=== PATIENT | female | born 1995 | race American Indian/Alaskan Native ===

== ENCOUNTER 2017-11-01 11:11 | Emergency (ER) | payer MEDICAID ==
[2017-11-01 11:24] VITALS: RESP 18; BMI 21.6
--- NOTE | 2017-11-01 12:12 | ED PDOC ---
Arrival/HPI - General Historian: Patient - History of Present Illness Time/Duration: < week Symptom Course: Improving Activities at Onset: Light Context: Home <Minh Cole - Last Filed: 11/01/17 12:27> <Sravan Hernandez DO - Last Filed: 11/01/17 22:32> - General Time Seen by Provider: 11/01/17 11:14 - History of Present Illness Narrative History of Present Illness (Text): 11/01/17 12:06 This is a 22 year old female with PMH of asthma presenting to the ED for two day history of pruitic rash that appeared on her right shoulder and upper chest. Rash is much improved today. She states she gets similar symptoms when getting into contact with maple, grass, latex and dust. Benadryl helps with the symptoms. LMP is today. She denies CP, SOB, abdominal pain, headaches, back pain , urinary complaints, numbness or tingling, trauma, recent sickness, fevers, nausea, vomiting, and blood in the stool or urine. (Minh Cole) Past Medical History - Provider Review Nursing Documentation Reviewed: Yes - Cardiac Hx Cardiac Disorders: No - Pulmonary Hx Respiratory Disorders: Yes Hx Asthma: Yes - Neurological Hx Neurological Disorder: No - HEENT Hx HEENT Disorder: No - Renal Hx Renal Disorder: No - Endocrine/Metabolic Hx Endocrine Disorders: No - Hematological/Oncological Hx Blood Disorders: No - Integumentary Hx Dermatological Disorder: No - Musculoskeletal/Rheumatological Hx Musculoskeletal Disorders: No - Gastrointestinal Hx Gastrointestinal Disorders: No - Genitourinary/Gynecological Hx Genitourinary Disorders: No - Psychiatric Hx Psychophysiologic Disorder: Yes Hx Depression: Yes Hx Substance Use: No - Anesthesia Hx Anesthesia: Yes <Minh Cole - Last Filed: 11/01/17 12:27> Family/Social History - Physician Review Nursing Documentation Reviewed: Yes Family/Social History: Unknown Family HX Smoking Status: Never Smoked Hx Alcohol Use: No Hx Substance Use: No <Minh Cole - Last Filed: 11/01/17 12:27> Allergies/Home Meds <Minh Cole - Last Filed: 11/01/17 12:27> <Sravan Hernandez DO - Last Filed: 11/01/17 22:32> Allergies/Adverse Reactions: Allergies grass pollen Allergy (Verified 07/25/18 11:31) ITCHING house dust mite Allergy (Verified 11/01/17 11:31) ITCHING latex Allergy (Verified 11/01/17 11:31) ITCHING Review of Systems - Physician Review All systems were reviewed & negative as marked: Yes - Review of Systems Constitutional: Normal. absent: Fevers Eyes: Normal. absent: Vision Changes ENT: Normal. absent: Hearing Changes Respiratory: Normal. absent: SOB, Cough Cardiovascular: Normal. absent: Chest Pain, Palpitations Gastrointestinal: Normal. absent: Abdominal Pain, Constipation, Diarrhea, Nausea, Vomiting, Hematochezia, Hematemesis Genitourinary Female: Normal. absent: Dysuria, Frequency Musculoskeletal: Normal Skin: Rash, Pruritis, Other (improving pruitic rash on the right shoulder and upper chest) Neurological: Normal. absent: Headache Endocrine: Normal. absent: Diaphoresis <BaseMinh julian - Last Filed: 11/01/17 12:27> Physical Exam Vital Signs Reviewed: Yes Temperature: Afebrile Blood Pressure: Normal Pulse: Regular Respiratory Rate: Normal Appearance: Positive for: Well-Appearing, Non-Toxic, Comfortable Pain Distress: None Mental Status: Positive for: Alert and Oriented X 3 - Systems Exam Head: Present: Atraumatic, Normocephalic Pupils: Present: PERRL Extroacular Muscles: Present: EOMI Conjunctiva: Present: Normal Mouth: Present: Moist Mucous Membranes Neck: Present: Normal Range of Motion Respiratory/Chest: Present: Clear to Auscultation, Good Air Exchange. No: Respiratory Distress, Accessory Muscle Use, Wheezes Cardiovascular: Present: Regular Rate and Rhythm, Normal S1, S2. No: Murmurs Abdomen: Present: Normal Bowel Sounds. No: Tenderness, Distention, Peritoneal Signs, Rebound, Guarding Back: Present: Normal Inspection Upper Extremity: Present: Normal Inspection. No: Cyanosis, Edema Lower Extremity: Present: Normal Inspection. No: Edema Neurological: Present: Speech Normal, Motor Func Grossly Intact, Normal Sensory Function Skin: Present: Warm, Dry, Normal Color, Other (minimal papules noted on the right shoulder and upper chest. no tenderness or pruitis) Psychiatric: Present: Alert, Oriented x 3, Normal Insight, Normal Concentration <BaseMinh julian - Last Filed: 11/01/17 12:27> Vital Signs Temp Pulse Resp BP Pulse Ox 11/01/17 12:25 97.8 F 85 18 115/70 100 11/01/17 11:12 97.7 F 84 18 118/73 99 Medical Decision Making <Minh Cole - Last Filed: 11/01/17 12:27> <Sravan Hernandez DO - Last Filed: 11/01/17 22:32> ED Course and Treatment: 11/01/17 12:17 Impression: This is a 22 year old female with PMH of asthma presenting to the ED for two day history of pruitic rash that appeared on her right shoulder and upper chest. Differential not limited to: atopic rash vs eczema vs allergic dermatitis Plan: -hydrocortisone cream Progress: Patient resting comfortably, vitals are stable and afebrile. (Minh Cole) 11/01/17 13:24 22 year old female presents to the Emergency Department for evaluation of rash. In agreement with resident note, which includes further HPI details. Patient was seen and evaluated with resident, came up with plan and treatment together. (Sravan Hernandez DO) - PA / ANIMAL LABORATORY TECHNICIAN / Resident Statement MARIA D has reviewed & agrees with the documentation as recorded. / has examined the patient and agrees with the treatment plan. <Minh Cole - Last Filed: 11/01/17 12:27> - PA / ANIMAL LABORATORY TECHNICIAN / Resident Statement MARIA D has reviewed & agrees with the documentation as recorded. MARIA D has examined the patient and agrees with the treatment plan. - Scribe Statement The provider has reviewed the documentation as recorded by the Scribe <Sravan Hernandez DO - Last Filed: 11/01/17 22:32> - Scribe Statement Chelo Kingston, training with Monique Andujar. All medical record entries made by the Scribe were at my direction and personally dictated by me. I have reviewed the chart and agree that the record accurately reflects my personal performance of the history, physical exam, medical decision making, and the department course for this patient. I have also personally directed, reviewed, and agree with the discharge instructions and disposition. (Sravan Hernandez DO) Disposition/Present on Arrival - Present on Arrival History of DVT/PE: No History of Uncontrolled Diabetes: No Urinary Catheter: No History of Decub. Ulcer: No History Surgical Site Infection Following: None <Minh Cole - Last Filed: 11/01/17 12:27> - Present on Arrival Any Indicators Present on Arrival: No - Disposition Have Diagnosis and Disposition been Completed?: Yes Disposition Time: 11:40 <Sravan Hernandez DO - Last Filed: 11/01/17 22:32> - Disposition Diagnosis: Rash Disposition: HOME/ ROUTINE Condition: GOOD Discharge Instructions (ExitCare): Skin Rash (DC) Additional Instructions: KACEY AZUL, thank you for letting us take care of you today. The emergency medical care you received today was directed at your acute symptoms. If you were prescribed any medication, please fill it and take as directed. It may take several days for your symptoms to resolve. Return to the Emergency Department if your symptoms worsen, do not improve, or if you have any other problems. Please contact your doctor or call one of the physicians/clinics you have been referred to that are listed on the Patient Visit Information form that is included in your discharge packet. Bring any paperwork you were given at discharge with you along with any medications you are taking to your follow up visit. Our treatment cannot replace ongoing medical care by a primary care provider outside of the emergency department. Thank you for allowing the [facility] team to be part of your care today. Follow up with your primary care doctor in 3-4 days for re-evaluation and further management. Prescriptions: Hydrocortisone 1% Cream [Cortizone 1% Cream] 1 unit TP BID PRN #1 tube PRN Reason: Rash Referrals: [facility], [Non-Staff] - Follow up with primary Forms: [employer] (Faroese), WORK NOTE
[2017-11-01 12:26] VITALS: BP 115/70; PULSE 85; TEMP 97.8; O2SAT 100
== END 2017-11-01 12:25 | disposition home or self-care (01) ==
LOC: MERGE 11:11 → ED 11:11
DX: R21 Rash and other nonspecific skin eruption (principal)